=== PATIENT | female | born 1965 | race Caucasian/White ===

== ENCOUNTER 2016-11-04 08:58 | Emergency (ER) | payer OTHER ==
[~2016-11-04] VITALS: Ht 157.5 cm; Wt 63.6 kg
[~2016-11-04 08:58] MED LIST: IBUP200C5 PO
[2016-11-04] MEDS ORDERED: LISI10TA7 PO (09:03)
[2016-11-04 09:12] VITALS: BP 150/82
[2016-11-04] MEDS ORDERED: PredniSONE 20 MG TABLET PO ONE (09:30)
== END 2016-11-04 09:56 | disposition home or self-care (01) ==
LOC: EMS 09:00
DX: J06.9 Acute upper respiratory infection, unspecified (principal); I10 Essential (primary) hypertension
CPT/HCPCS: 99283; J7512